=== PATIENT | male | born 1990 | race Caucasian/White ===

== ENCOUNTER 2016-08-12 19:56 | Emergency (ER) | payer MEDICAID, OTHER ==
[~2016-08-12] VITALS: Ht 172.7 cm; Wt 77.0 kg
[~2016-08-12 19:56] MED LIST: AMOX500T PO; PANT20 PO; TRAM50 PO; ZOFR4TAB3 SL
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
[2016-08-12 20:51] VITALS: BP 124/79; PULSE 91; RESP 18; TEMP 97.6; O2SAT 97
[2016-08-12 21:05] LABS: AUTOMATED NEUTROPHIL # 4.1 TH/MM3 (1.8-7.7); BASOPHIL % 0.4 % (0.0-2.0); EOSINOPHIL % 0.3 % (0.0-4.0); HEMO FLAGS DIFF FINAL; LYMPH % 28.2 % (9.0-44.0); LYMPHOCYTE # 1.8 TH/MM3 (1.0-4.8); MEAN CELL VOLUME 88.9 FL (80.0-100.0); MEAN CORPUSCULAR HEMOGLOBIN 31.2 PG (27.0-34.0); MEAN CORPUSCULAR HGB CONC 35.1 % (32.0-36.0); NEUT % 63.1 % (16.0-70.0); PLATELET COUNT 289 TH/MM3 (150-450); RED BLOOD COUNT 4.72 MIL/MM3 (4.50-5.90); RED CELL DISTRIBUTION WIDTH 13.7 % (11.6-17.2); WHITE BLOOD COUNT 6.6 TH/MM3 (4.0-11.0)
[2016-08-12 21:30] LABS: ANION GAP 7 MEQ/L (5-15)
[2016-08-12 21:33] LABS: ALKALINE PHOSPHATASE 82 U/L (45-117); ALT (GPT) 19 U/L (12-78); AST (GOT) 15 U/L (15-37); BICARBONATE 26.9 MEQ/L (21.0-32.0); BLOOD UREA NITROGEN 15 MG/DL (7-18); CHLORIDE 109 MEQ/L (98-107); GLOMERULAR FILTRATION RATE 99 ML/MIN (>89); POTASSIUM 3.5 MEQ/L (3.5-5.1); SODIUM (NA) 143 MEQ/L (136-145); TOTAL BILIRUBIN ADULT 0.3 MG/DL (0.2-1.0)
[2016-08-12 21:37] LABS: AMPHETAMINE, URINE NEG (NEG); BARBITURATES, URINE NEG (NEG); COCAINE, URINE NEG (NEG)
[2016-08-12 23:58] VITALS: BP 143/63; PULSE 87; RESP 18; TEMP 97.5; O2SAT 99
[2016-08-13 02:49] VITALS: BP 124/61; PULSE 74; RESP 17; O2SAT 97
[2016-08-13 06:21] VITALS: BP 133/70; PULSE 58; RESP 18; TEMP 97.6; O2SAT 98
[2016-08-13 10:46] VITALS: BP 130/67; PULSE 62; RESP 16; O2SAT 98
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
== END 2016-08-13 12:01 | disposition home or self-care (01) ==
LOC: NEPJ 19:56
DX: Z02.89 Encounter for other administrative examinations (principal); F17.200 Nicotine dependence, unspecified, uncomplicated; F43.20 Adjustment disorder, unspecified; F10.24 Alcohol dependence with alcohol-induced mood disorder
CPT/HCPCS: 80053; 80307; 80320; 85025; 99284